=== PATIENT | male | born 1970 | race Caucasian/White ===

== ENCOUNTER 2020-10-14 11:22 | Emergency (ER) | payer OTHER ==
[~2020-10-14] VITALS: Ht 180.3 cm; Wt 90.7 kg
[~2020-10-14 11:22] MED LIST: BACTRIM DS TAB1 EACH PO
[2020-10-14] MEDS ORDERED: PERCOCET 5-3251 EACH PO (13:20)
[2020-10-14 13:46] VITALS: BP 142/67
== END 2020-10-14 14:27 | disposition home or self-care (01) ==
LOC: M.ERS 11:22
DX: S92.002A Unspecified fracture of left calcaneus, initial encounter for closed fracture (principal); Z88.0 Allergy status to penicillin; W11.XXXA Fall on and from ladder, initial encounter; Y93.89 Activity, other specified; Y92.89 Other specified places as the place of occurrence of the external cause; Y99.8 Other external cause status